=== PATIENT | female | born 1980 | race American Indian/Alaskan Native ===

== ENCOUNTER 2016-12-20 09:55 | Outpatient (CLI) | payer MEDICAID ==
[2016-12-20 10:14] LABS: Hematocrit 40.9 % (30.3-42.9); Hemoglobin 13.4 gm/dl (10.1-14.3); Mean Corpuscular HGB Conc 33 % (30-34); Mean Corpuscular Hemoglobin 29 pg (28-32); Mean Corpuscular Volume 88 fl (79-97); Platelet Count 151 K/mm3 (140-440); Red Blood Count 4.66 M/mm3 (3.65-5.03); Red Cell Distribution Width 15.6 % (13.2-15.2); White Blood Count 5.3 K/mm3 (4.5-11.0)
[2016-12-20 10:34] LABS: Alanine Aminotransferase 12 units/L (7-56); Albumin 4.1 g/dL (3.9-5); Albumin/Globulin Ratio 1.2 %; Alkaline Phosphatase 58 units/L (35-129); Anion Gap 16 mmol/L; BUN/Creatinine Ratio 15.71; Blood Urea Nitrogen 11 mg/dL (7-17); Calcium 8.6 mg/dL (8.4-10.2); Carbon Dioxide 26 mmol/L (22-30); Chloride 105.1 mmol/L (98-107); Glucose 99 mg/dL (65-100); Sodium 143 mmol/L (137-145); Total Protein 7.4 g/dL (6.3-8.2)
[2016-12-20 10:46] LABS: Erythrocyte Sedimentation Rate 11 mm/Hr (0-20)
== END 2016-12-20 09:56 | disposition home or self-care (01) ==
LOC: LAB 09:55
PROVIDERS: ATTEND Specialist
DX: G40.219 Localization-related (focal) (partial) symptomatic epilepsy and epileptic syndromes with complex partial seizures, intractable, without status epilepticus (principal)
CPT/HCPCS: 36415; 80053; 84443; 85027; 85652

== ENCOUNTER 2017-01-24 09:44 | Outpatient (CLI) | payer MEDICAID ==
[2017-01-24 10:11] LABS: Hematocrit 41.6 % (30.3-42.9); Hemoglobin 13.5 gm/dl (10.1-14.3); Mean Corpuscular HGB Conc 33 % (30-34); Mean Corpuscular Hemoglobin 29 pg (28-32); Mean Corpuscular Volume 89 fl (79-97); Platelet Count 132 K/mm3 (140-440); Red Cell Distribution Width 15.1 % (13.2-15.2); White Blood Count 4.5 K/mm3 (4.5-11.0)
[2017-01-24 10:25] LABS: Alanine Aminotransferase 12 units/L (7-56); Albumin 4.2 g/dL (3.9-5); Albumin/Globulin Ratio 1.3 %; Alkaline Phosphatase 55 units/L (35-129); Anion Gap 16 mmol/L; Blood Urea Nitrogen 6 mg/dL (7-17); Carbon Dioxide 26 mmol/L (22-30); Chloride 103.6 mmol/L (98-107); Glucose 88 mg/dL (65-100); Potassium 3.9 mmol/L (3.6-5.0); Sodium 142 mmol/L (137-145); Total Protein 7.4 g/dL (6.3-8.2)
[2017-01-24 11:23] LABS: Calcium 8.9 mg/dL (8.4-10.2)
== END 2017-01-24 09:45 | disposition home or self-care (01) ==
LOC: LAB 09:44
PROVIDERS: ATTEND Specialist
DX: G40.211 Localization-related (focal) (partial) symptomatic epilepsy and epileptic syndromes with complex partial seizures, intractable, with status epilepticus (principal)
CPT/HCPCS: 36415; 80053; 80164; 85027

== ENCOUNTER 2017-10-30 13:26 | Emergency (ER) | payer MEDICAID ==
[2017-10-30 14:33] VITALS: BP 154/90
[2017-10-30] MEDS ORDERED: TORADOL IM ONE (15:48)
--- NOTE | 2017-10-30 17:22 | Emergency Department Report ---
Chief Complaint: Extremity Injury, Lower Stated Complaint: NO MOBILITY ON LEFT SIDE Time Seen by Provider: 10/30/17 15:27 - HPI History of Present Illness: The patient is a 37-year-old female who presents for evaluation of left knee pain. The patient has a history of chronic left knee pain. She reports recurrence of left knee pain yesterday morning, constant since onset, 10/10 in severity, throbbing and stinging in quality, exacerbated with weightbearing or movement of the left leg. She states that her symptoms began after twisting her knee. The patient denies blood trauma to the knee, fever, chills, night sweats , loss of sensation in the leg, leg swelling, bruising, redness. - Exam Vital Signs: Vital Signs 10/30/17 14:28 Temperature 98 F Pulse Rate 87 Respiratory 18 Rate Blood Pressure 154/90 O2 Sat by Pulse 99 Oximetry MSE screening note: Focused history and physical exam performed. Due to findings the following was ordered: ED Disposition for MSE Condition: Stable Referrals: PRIMARY CARE, [Primary Care Provider] - 3-5 Days
--- NOTE | 2017-10-30 18:15 | XRay Report ---
FINAL REPORT PROCEDURE: XR KNEE 2V LT TECHNIQUE: LEFT knee radiographs, AP and lateral views. CPT 94052 HISTORY: Knee pain. COMPARISON: No prior studies are available for comparison. FINDINGS: Fracture (s) and/or Dislocation(s): None . Alignment: Normal . Joint space(s): Mild medial compartment narrowing. Mild tibial eminence spurring. Small joint effusion. Soft tissues: Normal . Bone mineralization: Normal . Foreign bodies: None . IMPRESSION: Mild degenerative changes of the left knee. Small joint effusion. No radiographic evidence of displaced fracture.
== END 2017-10-30 19:35 | disposition left against medical advice (07) ==
LOC: ED 13:26
DX: M25.562 Pain in left knee (principal)
CPT/HCPCS: 73560; 96372; 99283; J1885

== ENCOUNTER 2018-01-08 12:45 | Emergency (ER) | payer MEDICAID ==
[2018-01-08] MEDS ORDERED: KEPPRA 1,000 MG/NS 0.75% 100ML 1,000 MG/100 ML BAG IV ONE (13:52)
[2018-01-08] MEDS ORDERED: ATIVAN IV ONE (14:05)
[2018-01-08] MEDS ORDERED: LaMICtal PO ONE (14:17)
--- NOTE | 2018-01-08 14:30 | Emergency Department Report ---
ED Seizure HPI - General Chief Complaint: Seizure Stated Complaint: SEIZURES Time Seen by Provider: 01/08/18 13:56 Source: patient, EMS Mode of arrival: Stretcher Limitations: No Limitations - History of Present Illness Initial Comments: From chart review, patient started having a generalized tonic-clonic seizure at home. It lasted approximately 10 minutes. EMS arrived and found the patient postictal. No reported wheezes were given. Patient is transferred to the ER for evaluation. Patient does not remember what happened. States that she is on Depakote and Lamictal for her seizures. She misses a couple of doses a week. Her last seizure was a couple months ago. No incontinence or tongue biting. - Related Data Home Medications Medication Instructions Recorded Confirmed Last Taken Ibuprofen [Motrin 800 MG tab] 800 mg PO PRN 10/02/16 10/03/16 Unknown Previous Rx's Medication Instructions Recorded Last Taken Type levETIRAcetam [Keppra TAB] 500 mg PO BID #60 tablet 10/03/16 Unknown Rx Allergies Allergy/AdvReac Type Severity Reaction Status Date / Time Sulfa (Sulfonamide Allergy Rash Verified 07/16/13 03:57 Antibiotics) ED Review of Systems ROS: Stated complaint: SEIZURES Other details as noted in HPI Constitutional: denies: chills, fever Eyes: denies: eye pain, eye discharge, vision change ENT: denies: ear pain, throat pain Respiratory: denies: cough, shortness of breath, wheezing Cardiovascular: denies: chest pain, palpitations Endocrine: no symptoms reported Gastrointestinal: abdominal pain. denies: nausea, diarrhea Genitourinary: denies: urgency, dysuria, discharge Musculoskeletal: denies: back pain, joint swelling, arthralgia Skin: denies: rash, lesions Neurological: denies: headache, weakness, paresthesias Psychiatric: denies: anxiety, depression Hematological/Lymphatic: denies: easy bleeding, easy bruising ED Past Medical Hx - Past Medical History Hx Hypertension: Yes Hx CVA: No Hx Heart Attack/AMI: No Hx Congestive Heart Failure: No Hx Diabetes: No Hx Deep Vein Thrombosis: No Hx Pulmonary Embolism: No Hx GERD: No Hx Liver Disease: No Hx Renal Disease: No Hx Sickle Cell Disease: No Hx Arthritis: No Hx Headaches / Migraines: No Hx Seizures: Yes Hx Kidney Stones: No Hx Psychiatric Treatment: Yes (Anxiety, Bipolar) Hx Asthma: Yes Hx COPD: No Hx Tuberculosis: No Hx Dementia: No Hx HIV: No Additional medical history: "disc problem" lower back, FIBROMYALGIA. bulging disc in c-spine - Surgical History Hx Coronary Stent: No Hx Open Heart Surgery: No Hx Pacemaker: No Hx Internal Defibrillator: No Hx Cholecystectomy: No Hx Appendectomy: No Hx Breast Surgery: No Additional Surgical History: tubal ligation - Social History Smoking Status: Current Every Day Smoker Substance Use Type: None, Marijuana - Medications Home Medications: Home Medications Medication Instructions Recorded Confirmed Last Taken Type Ibuprofen [Motrin 800 MG tab] 800 mg PO PRN 10/02/16 10/03/16 Unknown History levETIRAcetam [Keppra TAB] 500 mg PO BID #60 tablet 10/03/16 Unknown Rx ED Physical Exam - General Limitations: No Limitations General appearance: alert, in no apparent distress - Head Head exam: Present: atraumatic, normocephalic - Eye Eye exam: Present: normal appearance - ENT ENT exam: Present: mucous membranes moist - Neck Neck exam: Present: normal inspection - Respiratory Respiratory exam: Present: normal lung sounds bilaterally. Absent: respiratory distress - Cardiovascular Cardiovascular Exam: Present: regular rate, normal rhythm. Absent: systolic murmur, diastolic murmur, rubs, gallop - GI/Abdominal GI/Abdominal exam: Present: soft, tenderness (RUQ, LUQ), normal bowel sounds - Extremities Exam Extremities exam: Present: normal inspection - Back Exam Back exam: Present: normal inspection - Neurological Exam Neurological exam: Present: alert, oriented X3 - Psychiatric Psychiatric exam: Present: normal affect, normal mood - Skin Skin exam: Present: warm, dry, intact, normal color. Absent: rash ED Course Vital Signs 01/08/18 01/08/18 01/08/18 13:40 14:16 15:35 Temperature 98.4 F Pulse Rate 87 82 Respiratory 18 16 16 Rate Blood Pressure 136/90 Blood Pressure 136/88 [Right] O2 Sat by Pulse 100 100 100 Oximetry ED Medical Decision Making - Lab Data Result diagrams: 01/08/18 14:35 01/08/18 14:35 - EKG Data -: EKG Interpreted by Vt EKG shows normal: sinus rhythm, axis, intervals, QRS complexes, ST-T waves Rate: normal - EKG Data Interpretation: no acute changes - Medical Decision Making 37-year-old female with past medical history of seizures, fibromyalgia, anxiety on Depakote/Chlamydia donut presents to the ER with history of seizure- like activity. Patient was postictal on arrival. She continued to improve. Lab work shows a bicarbonate of 20. Likely this is due to a lactic acidosis from her seizure-like activity. Patient had no deficits on presentation. Do not see indication for head imaging at this time. She was given IV fluids, Ativan, and her home Depakote/Lamictal. Depakote level was 50. EKG unremarkable. I have encouraged the patient to be more compliant with her home medications. She ambulated without any difficulty. Patient cleared for discharge. - Differential Diagnosis meningitis, epilepsy, pseudoseizures, electrolyte abnormalities, sepsis Critical care attestation.: If time is entered above; I have spent that time in minutes in the direct care of this critically ill patient, excluding procedure time. ED Disposition Clinical Impression: Seizure-like activity Disposition: DC-01 TO HOME OR SELFCARE Is pt being admited?: No Does the pt Need Aspirin: No Condition: Stable Instructions: Recurrent Seizures Adult (ED) Additional Instructions: Please follow up with your family doctor and/or neurologist for further management of your seizures. Make sure that you take your home medications every day. Referrals: PRIMARY CARE, [Primary Care Provider] - 3-5 Days
[2018-01-08 15:03] LABS: Hematocrit 44.9 % (30.3-42.9); Hemoglobin 15.3 gm/dl (10.1-14.3); Mean Corpuscular HGB Conc 34 % (30-34); Mean Corpuscular Hemoglobin 30 pg (28-32); Mean Corpuscular Volume 87 fl (79-97); Red Blood Count 5.16 M/mm3 (3.65-5.03); Red Cell Distribution Width 13.9 % (13.2-15.2)
[2018-01-08 15:08] LABS: Platelet Count 124 K/mm3 (140-440)
[2018-01-08 15:18] LABS: BUN/Creatinine Ratio 8; Blood Urea Nitrogen 5 mg/dL (7-17); Hemolysis Index 29
[2018-01-08] MEDS ORDERED: NACL 0.9% 1000 ML 1,000 ML IV ONE (15:31)
[2018-01-08 19:00] VITALS: BP 131/78
== END 2018-01-08 19:00 | disposition home or self-care (01) ==
LOC: ED 12:45
DX: G40.909 Epilepsy, unspecified, not intractable, without status epilepticus (principal); I10 Essential (primary) hypertension; F17.200 Nicotine dependence, unspecified, uncomplicated; F12.10 Cannabis abuse, uncomplicated; Z88.2 Allergy status to sulfonamides
CPT/HCPCS: 36415; 80048; 80164; 82962; 84703; 85027; 93005; 93010; 96361; 96374; 99284; J1953; J2060; J7030

== ENCOUNTER 2018-05-27 10:38 | Emergency (ER) | payer MEDICAID ==
[2018-05-27] MEDS ORDERED: ATIVAN IV ONE (11:04)
[2018-05-27] MEDS ORDERED: KEPPRA 1,000 MG/NS 0.75% 100ML 1,000 MG/100 ML BAG IV ONE (11:05)
--- NOTE | 2018-05-27 11:09 | Emergency Department Report ---
ED Seizure HPI - General Stated Complaint: SEIZURE Time Seen by Provider: 05/27/18 11:01 Source: RN/, EMS - History of Present Illness Initial Comments: Patient presents to the emergency department via EMS for seizure. Per EMS the patient's boyfriend states that the patient has a history of seizures and has not been taking her medications. There is confusion of the patient struck her head on not doing her seizure activity a whole. Patient was post ictal on arrival and had a witnessed tonic-clonic seizure by medical staff in the ED. Patient I will add to history due to a post ictal state MD Complaint: seizure -: Sudden Description of Episode: loss of consciousness, bladder incontinence, post-event confusion Witnessed:: Yes Trauma: No Seizure History: known seizure disorder Place: home Possible Precipitating Event: none Treatments Prior to Arrival: none - Related Data Previous Rx's Medication Instructions Recorded Last Taken Type levETIRAcetam [Keppra TAB] 500 mg PO BID #60 tablet 10/03/16 Unknown Rx levETIRAcetam [Keppra TAB] 500 mg PO BID #60 tablet 05/27/18 Unknown Rx Allergies Allergy/AdvReac Type Severity Reaction Status Date / Time Sulfa (Sulfonamide Allergy Rash Verified 07/16/13 03:57 Antibiotics) ED Review of Systems ROS: Stated complaint: SEIZURE Other details as noted in HPI Comment: Unobtainable due to pts medical conditions ED Past Medical Hx - Past Medical History Hx Hypertension: Yes Hx CVA: No Hx Heart Attack/AMI: No Hx Congestive Heart Failure: No Hx Diabetes: No Hx Deep Vein Thrombosis: No Hx Pulmonary Embolism: No Hx GERD: No Hx Liver Disease: No Hx Renal Disease: No Hx Sickle Cell Disease: No Hx Arthritis: No Hx Headaches / Migraines: No Hx Seizures: Yes Hx Kidney Stones: No Hx Psychiatric Treatment: Yes (Anxiety, Bipolar) Hx Asthma: Yes Hx COPD: No Hx Tuberculosis: No Hx Dementia: No Hx HIV: No Additional medical history: "disc problem" lower back, FIBROMYALGIA. bulging disc in c-spine - Surgical History Hx Coronary Stent: No Hx Open Heart Surgery: No Hx Pacemaker: No Hx Internal Defibrillator: No Hx Cholecystectomy: No Hx Appendectomy: No Hx Breast Surgery: No Additional Surgical History: tubal ligation - Social History Smoking Status: Current Every Day Smoker Substance Use Type: None, Marijuana - Medications Home Medications: Home Medications Medication Instructions Recorded Confirmed Last Taken Type levETIRAcetam [Keppra TAB] 500 mg PO BID #60 tablet 10/03/16 05/27/18 Unknown Rx levETIRAcetam [Keppra TAB] 500 mg PO BID #60 tablet 05/27/18 Unknown Rx ED Physical Exam - Head Head exam: Present: atraumatic, normocephalic - Eye Eye exam: Present: normal appearance, PERRL. Absent: conjunctival injection - ENT ENT exam: Present: normal exam, normal orophraynx, TM's normal bilaterally - Neck Neck exam: Present: other (No obvious gross deformity) - Respiratory Respiratory exam: Present: normal lung sounds bilaterally, respiratory distress. Absent: wheezes, rales, rhonchi - Cardiovascular Cardiovascular Exam: Present: regular rate, normal rhythm - GI/Abdominal GI/Abdominal exam: Present: soft, normal bowel sounds. Absent: distended - Neurological Exam Neurological exam: Present: other (patient is post ictal) - Psychiatric Psychiatric exam: Present: other (not able to assess due to the patient's post ictal state) - Skin Skin exam: Present: warm ED Course Vital Signs 05/27/18 05/27/18 05/27/18 11:03 11:14 13:20 Temperature 98.4 F Pulse Rate 104 H 100 H Respiratory 20 20 20 Rate Blood Pressure 119/77 Blood Pressure 115/71 [Left] O2 Sat by Pulse 94 100 Oximetry ED Medical Decision Making - Radiology Data Referring Physician: SAMANTHA MCGEE Patient Name: GEOFFREY MEJIA Date of : 1980 Sex: Female Report Date: 2018-05-27 Report Status: Finalized [facility] [address] [place] [address] Cat Scan Report Signed Patient: GEOFFREY MEJIA MR#: [id number] : 1980 Acct:[id number] Age/Sex: 37 / F ADM Date: 05/27/18 Loc: ED Attending Dr: Ordering Physician: SAMANTHA MCGEE MD Date of Service: 05/27/18 Procedure(s): CT head/brain wo con Accession Number(s): [id number] cc: SAMANTHA MCGEE MD CT HEAD WITHOUT CONTRAST: HISTORY: Seizure, head injury. TECHNIQUE: Sequential 2.5mm CT images. COMPARISON: 10/03/16. FINDINGS: Cerebral Parenchyma: Within normal limits. Cerebellum: Within normal limits. Brainstem: Within normal limits. Ventricles: Normal. Sella: Normal. Extra-axial spaces: Normal. Basal Cisterns: Normal. Intracranial Hemorrhage: None. Midline Shift: None. Calvarium: Normal. Sinuses: Normal. Mastoid Air Cells: Normal. Visualized Orbits: Normal. IMPRESSION: Cranial CT scan within normal limits. Transcribed By: TTR Dictated By: GRAHAM MACIAS JR, MD Electronically Authenticated By: GRAHAM MACIAS JR, MD Signed Date/Time: 05/27/18 1155 Findings [facility] [address] [place] [address] Cat Scan Report Signed Patient: GEOFFREY MEJIA MR#: [id number] : 1980 Acct:[id number] Age/Sex: 37 / F ADM Date: 05/27/18 Loc: ED Attending Dr: Ordering Physician: SAMANTHA MCGEE MD Date of Service: 05/27/18 Procedure(s): CT cervical spine wo con Accession Number(s): [id number] cc: SAMANTHA MCGEE MD CT SCAN OF THE CERVICAL SPINE: HISTORY: Seizure, head injury. TECHNIQUE: Contiguous 1.25 mm axial images of the cervical spine were obtained. Sagittal and coronal reformatted images. FINDINGS: There is normal alignment of the cervical spine. The body, pedicles and posterior ligaments appear normal. No evidence of fracture or subluxation is seen. The spinal canal appears normal. The prevertebral soft tissues appear normal. There is patchy groundglass infiltration in both lung apices. It is unclear if this represents pulmonary edema or infectious infiltrates. IMPRESSION: Unremarkable CT of the cervical spine. No acute process is noted. Infiltrative changes at both lung apices as described. I favor congestive changes. Transcribed By: TTR Dictated By: GRAHAM MACIAS JR, MD Electronically Authenticated By: GRAHAM MACIAS JR, MD Signed Date/Time: 05/27/18 1156 DD/ 1155 TD/TT: 05/27/18 1156 - Medical Decision Making Patient received IV Keppra and Ativan Physical exam the patient is a massive questions and is no longer postictal but is sleepy due to the medications Critical care attestation.: If time is entered above; I have spent that time in minutes in the direct care of this critically ill patient, excluding procedure time. ED Disposition Clinical Impression: Seizure Disposition: DC-01 TO HOME OR SELFCARE Is pt being admited?: No Does the pt Need Aspirin: No Condition: Stable Instructions: Recurrent Seizures Adult (ED) Additional Instructions: return if worse Prescriptions: levETIRAcetam [Keppra TAB] 500 mg PO BID #60 tablet Referrals: PRIMARY CARE, [Primary Care Provider] - 3-5 Days Time of Disposition: 13:40
--- NOTE | 2018-05-27 11:56 | Cat Scan Report ---
CT HEAD WITHOUT CONTRAST: HISTORY: Seizure, head injury. TECHNIQUE: Sequential 2.5mm CT images. COMPARISON: 10/03/16. FINDINGS: Cerebral Parenchyma: Within normal limits. Cerebellum: Within normal limits. Brainstem: Within normal limits. Ventricles: Normal. Sella: Normal. Extra-axial spaces: Normal. Basal Cisterns: Normal. Intracranial Hemorrhage: None. Midline Shift: None. Calvarium: Normal. Sinuses: Normal. Mastoid Air Cells: Normal. Visualized Orbits: Normal. IMPRESSION: Cranial CT scan within normal limits.
--- NOTE | 2018-05-27 11:58 | Cat Scan Report ---
CT SCAN OF THE CERVICAL SPINE: HISTORY: Seizure, head injury. TECHNIQUE: Contiguous 1.25 mm axial images of the cervical spine were obtained. Sagittal and coronal reformatted images. FINDINGS: There is normal alignment of the cervical spine. The body, pedicles and posterior ligaments appear normal. No evidence of fracture or subluxation is seen. The spinal canal appears normal. The prevertebral soft tissues appear normal. There is patchy groundglass infiltration in both lung apices. It is unclear if this represents pulmonary edema or infectious infiltrates. IMPRESSION: Unremarkable CT of the cervical spine. No acute process is noted. Infiltrative changes at both lung apices as described. I favor congestive changes.
[2018-05-27 13:21] VITALS: BP 115/71
[2018-05-27] MEDS ORDERED: TYLENOL PO ONE (14:14)
== END 2018-05-27 14:54 | disposition home or self-care (01) ==
LOC: ED 10:38
DX: G40.909 Epilepsy, unspecified, not intractable, without status epilepticus (principal); I10 Essential (primary) hypertension; J45.909 Unspecified asthma, uncomplicated; F17.200 Nicotine dependence, unspecified, uncomplicated; F12.90 Cannabis use, unspecified, uncomplicated; Z98.51 Tubal ligation status; Z88.2 Allergy status to sulfonamides
CPT/HCPCS: 70450; 72125; 96365; 96375; 99284; J1953; J2060

== ENCOUNTER 2020-07-06 07:15 | Emergency (ER) | payer MEDICAID ==
[2020-07-06 08:30] LABS: Basophils % (Auto) 0.4 % (0.0-1.8); Eosinophils % (Auto) 0.1 % (0.0-4.3); Hemoglobin 14.6 gm/dl (10.1-14.3); Lymphocytes # (Auto) 0.9 K/mm3 (1.2-5.4); Lymphocytes % (Auto) 13.1 % (13.4-35.0); Mean Corpuscular HGB Conc 35 % (30-34); Mean Corpuscular Volume 88 fl (79-97); Monocytes # (Auto) 0.4 K/mm3 (0.0-0.8); Red Blood Count 4.76 M/mm3 (3.65-5.03); Red Cell Distribution Width 14.6 % (13.2-15.2)
[2020-07-06] MEDS ORDERED: SODIUM CHLORIDE 0.9% 1000 ML 1,000 ML ONE (08:42)
[2020-07-06] MEDS ORDERED: ONDANSETRON 4 MG/2 ML INJ ONE (08:42)
[2020-07-06 08:46] LABS: Platelet Count 156 K/mm3 (140-440)
[2020-07-06 08:52] LABS: Alanine Aminotransferase 22 units/L (7-56); Albumin 4.1 g/dL (3.9-5); Blood Urea Nitrogen 6 mg/dL (7-17); Calcium 8.9 mg/dL (8.4-10.2); Hemolysis Index 34
[2020-07-06 08:59] LABS: BUN/Creatinine Ratio 9
[2020-07-06] MEDS ORDERED: levETIRAcetam 1000 MG/NS 0.75% 1,000 MG/100 ML BAG IV ONE (11:10)
[2020-07-06] MEDS ORDERED: ALUM-MAG HYDROXIDE-SIMETHICONE 200-200-20MG/5ML ORAL LIQD 30 ML PO ONE (11:10)
[2020-07-06] MEDS ORDERED: LIDOCAINE VISCOUS 2% 15 ML ORAL LIQD PO ONE (11:10)
[2020-07-06] MEDS ORDERED: OXcarbazepine 150 MG TAB PO ONE (11:10)
[2020-07-06] MEDS ORDERED: MORPHINE 2 MG/1 ML INJ IV ONE (11:11)
--- NOTE | 2020-07-06 11:15 | Emergency Department Report ---
HPI - General Chief Complaint: Seizure Time Seen by Provider: 07/06/20 11:02 - HPI HPI: This is a 39-year-old -[place] female who presents to the emergency department via EMS from home with a complaint of abdominal pain and a seizure this morning. The patient says that she had a seizure in her sleep. I spoke with her significant other on the phone who says that she had a seizure at around 3:30 AM, and another around 4 AM, that each lasted about 1 minute in length. She last had a seizure about 6 months ago. She has a history of epilepsy and is on Keppra 750 mg twice daily and oxcarbazepine 300 mg twice daily. The patient says that she does take the medication, but not necessarily as prescribed. The patient has some generalized abdominal pain that she says is 8 out of 10 in intensity. She says that she has a history of previous "stomach ulcer" and both the patient and her significant other say that her seizure activity occurs after the patient started having severe abdominal pains, which she did this morning. She did have an episode of nausea with vomiting earlier. Patient also complains of a generalized headache since the seizure. She denies any vision change, slurred speech, numbness or paresthesias, or any other neuro logical deficits. She did not receive anything for symptoms prior to presentation. Patient also has a past medical history of asthma, hypertension, anxiety, bipolar disorder, fibromyalgia, and some chronic back pains. Her primary care physician is a Dr. Fabby Rudolph. Her neurologist is a Dr. Cary at [place]. ED Past Medical Hx - Past Medical History Previous Medical History?: Yes Hx Hypertension: Yes Hx CVA: No Hx Heart Attack/AMI: No Hx Congestive Heart Failure: No Hx Diabetes: No Hx Deep Vein Thrombosis: No Hx Pulmonary Embolism: No Hx GERD: No Hx Liver Disease: No Hx Renal Disease: No Hx Sickle Cell Disease: No Hx Arthritis: No Hx Headaches / Migraines: No Hx Seizures: Yes Hx Kidney Stones: No Hx Psychiatric Treatment: Yes (Anxiety, Bipolar) Hx Asthma: Yes Hx COPD: No Hx Tuberculosis: No Hx Dementia: No Hx HIV: No Additional medical history: "disc problem" lower back, FIBROMYALGIA. bulging disc in c-spine - Surgical History Past Surgical History?: Yes Hx Coronary Stent: No Hx Open Heart Surgery: No Hx Pacemaker: No Hx Internal Defibrillator: No Hx Cholecystectomy: No Hx Appendectomy: No Hx Breast Surgery: No Additional Surgical History: tubal ligation - Social History Smoking Status: Never Smoker Substance Use Type: None - Medications Home Medications: Home Medications Medication Instructions Recorded Confirmed Last Taken Type levETIRAcetam [Keppra TAB] 500 mg PO BID #60 tablet 10/03/16 05/27/18 Unknown Rx levETIRAcetam [Keppra TAB] 500 mg PO BID #60 tablet 05/27/18 Unknown Rx predniSONE [Deltasone] 20 mg PO DAILY #5 tablet 02/18/20 Unknown Rx ED Review of Systems ROS: Stated complaint: SEIZURE/ABD PAINS Other details as noted in HPI Comment: All other systems reviewed and negative Constitutional: denies: chills, fever Eyes: denies: eye pain, vision change ENT: denies: ear pain, throat pain Respiratory: denies: cough, shortness of breath Cardiovascular: denies: chest pain, palpitations Gastrointestinal: abdominal pain, vomiting Genitourinary: denies: dysuria, discharge Musculoskeletal: denies: joint swelling, arthralgia Skin: denies: rash, lesions Neurological: headache. denies: weakness Physical Exam - Physical Exam Vital Signs: Vital Signs 07/06/20 07:53 Temperature 98.5 F Pulse Rate 96 H Respiratory 20 Rate Blood Pressure 142/93 [Right] O2 Sat by Pulse 100 Oximetry Physical Exam: GENERAL: The patient is well-developed well-nourished. HENT: Normocephalic. Atraumatic. Patient has moist mucous membranes. EYES: Extraocular motions are intact. NECK: Supple. Trachea is midline. CHEST/LUNGS: Clear to auscultation. There is no respiratory distress noted. HEART/CARDIOVASCULAR: Regular. There is no tachycardia. There is no murmur. ABDOMEN: Abdomen is soft. Mild generalized abdominal tenderness to palpation. No guarding. Patient has normal bowel sounds. There is no abdominal distention. SKIN: Skin is warm and dry. NEURO: The patient is awake, alert, and oriented. The patient is cooperative. The patient has no focal neurologic deficits. Normal speech. Cranial nerves II through XII grossly intact. MUSCULOSKELETAL: There is no tenderness or deformity. There is no limitation range of motion. ED Course Vital Signs 07/06/20 07:53 Temperature 98.5 F Pulse Rate 96 H Respiratory 20 Rate Blood Pressure 142/93 [Right] O2 Sat by Pulse 100 Oximetry ED Medical Decision Making - Lab Data Result diagrams: 07/06/20 08:00 07/06/20 08:00 - Radiology Data Radiology results: report reviewed, image reviewed interpreted by me: Abdominal x-ray shows nonspecific nonobstructive bowel gas CT HEAD WITHOUT CONTRAST INDICATION / CLINICAL INFORMATION: headache, seizures. TECHNIQUE: Axial imaging performed from the skull apex through the skull base without the use of contrast. Sagittal and coronal reformatted images. All CT scans at this location are [facility] dose reduction for FELICE by means of automated exposure control. COMPARISON: 05/27/2018 FINDINGS: CEREBRAL PARENCHYMA: No significant abnormality. No acute territorial infarct. HEMORRHAGE: None. EXTRA-AXIAL SPACES: Normal in size and morphology for the patient's age. VENTRICULAR SYSTEM: Normal in size and morphology for the patient's age. MIDLINE SHIFT OR HERNIATION: None. CEREBELLUM / BRAINSTEM: No significant abnormality. CALVARIUM: No significant abnormality. ORBITS: Normal as visualized. PARANASAL SINUSES / MASTOID AIR CELLS: Normal as visualized. SOFT TISSUES of HEAD: No significant abnormality. ADDITIONAL FINDINGS: None. IMPRESSION: No acute intracranial abnormality. - Medical Decision Making This patient presents after she had 2 witnessed seizures early this morning. Since being in the emergency department the patient has been awake, alert, oriented, AAO x3. She does not have any focal, motor or sensory deficits and her cranial nerves are intact. CT scan of the head without contrast does not show any bleed, shift, mass, ischemia, hydrocephalus, or any other acute process. Patient admits that she has not been compliant completely with her oxcarbazepine and Keppra. She was given a loading dose of Keppra and another dose of her oxcarbazepine. Patient has been to the emergency department for greater than 6 hours and there has been no return of any seizure-like activity. Patient also complains of some abdominal pain that appears to be acute on chroni c. Abdominal x-ray shows nonspecific nonobstructive bowel gas. The abdomen has some mild tenderness to palpation but otherwise it is nondistended, soft, and nontoxic in appearance. Patient had complained of seeing some blood in her urine. Urinalysis did not show any signs of urinary tract infection or any significant hematuria. However, I explained that she should follow-up with urology and she was given a referral for Dr. Resendez. Vital signs have been reassuring throughout her ED course. Patient says that she has good outpatient follow-up with both primary care and neurology. She has been instructed to return to the closest emergency department with any further seizure-like activity, worsening of her symptoms, or with any acute distress. Critical Care Time: No Critical care attestation.: If time is entered above; I have spent that time in minutes in the direct care of this critically ill patient, excluding procedure time. ED Disposition Clinical Impression: Seizure Abdominal pain Qualifiers: Abdominal location: generalized Qualified Code(s): R10.84 - Generalized abdominal pain Headache Qualifiers: Headache type: unspecified Headache chronicity pattern: unspecified pattern Intractability: not intractable Qualified Code(s): R51.9 - Headache, unspecified Disposition: TO HOME OR SELFCARE Is pt being admited?: No Condition: Stable Instructions: Abdominal Pain, Adult, Epilepsy, Seizure, Adult, Hematuria, Adult Additional Instructions: Please follow-up with your primary care physician and neurologist in the next few days. While the urinalysis today did not show any signs of infection or any blood in the urine, based on your complaint of seeing blood in the urine I have given you a referral for a local urologist, Dr. Resendez. Take all of your medications, including your seizure medications, as prescribed. Please avoid any alcohol or illicit drugs, or excessive caffeine, energy drinks, as this can lower your seizure threshold. Return to the emergency department with any worsening of your symptoms, new or concerning symptoms not addressed during this current emergency department visit, or with any acute distress. Referrals: Neurologist, Your [Other] - 2-3 Days NAVA RESENDEZ MD [Staff Physician] - 2-3 Days PRIMARY CARE, [Primary Care Provider] - 2-3 Days Time of Disposition: 14:01
[2020-07-06] MEDS ORDERED: SODIUM CHLORIDE 0.9% 1000 ML 1,000 ML IV ONE (11:24)
[2020-07-06] MEDS ORDERED: ONDANSETRON 4 MG/2 ML INJ IV ONE (11:24)
--- NOTE | 2020-07-06 12:40 | XRay Report ---
ABDOMEN 2 VIEW(S) INDICATION / CLINICAL INFORMATION: Abd pain. COMPARISON: None available. FINDINGS: TUBES / LINES: None. BOWEL GAS PATTERN/EXTRALUMINAL GAS: No significant abnormality. No pneumatosis or secondary signs of free air. ADDITIONAL FINDINGS: No significant additional findings. IMPRESSION: 1. No acute abnormality. Signer Name: Amrit Zaldivar MD Signed: 07/06/2020 12:35 PM Workstation Name: [id number]
[2020-07-06 13:29] LABS: Bilirubin,Urine NEG (Negative); Blood,Urine LG (Negative); Color,Urine Yellow (Yellow); Mucus,Urine 1+ /HPF; Protein,Urine <15 mg/dL mg/dL (Negative); Urobilinogen,Urine < 2.0 mg/dL (<2.0)
--- NOTE | 2020-07-06 13:49 | Cat Scan Report ---
CT HEAD WITHOUT CONTRAST INDICATION / CLINICAL INFORMATION: headache, seizures. TECHNIQUE: Axial imaging performed from the skull apex through the skull base without the use of cont rast. Sagittal and coronal reformatted images. All CT scans at this location are performed using CT dose reduction for ALARA by means of automated exposure control. COMPARISON: 05/27/2018 FINDINGS: CEREBRAL PARENCHYMA: No significant abnormality. No acute territorial infarct. HEMORRHAGE: None. EXTRA-AXIAL SPACES: Normal in size and morphology for the patient's age. VENTRICULAR SYSTEM: Normal in size and morphology for the patient's age. MIDLINE SHIFT OR HERNIATION: None. CEREBELLUM / BRAINSTEM: No significant abnormality. CALVARIUM: No significant abnormality. ORBITS: Normal as visualized. PARANASAL SINUSES / MASTOID AIR CELLS: Normal as visualized. SOFT TISSUES of HEAD: No significant abnormality. ADDITIONAL FINDINGS: None. IMPRESSION: No acute intracranial abnormality. Signer Name: Hakeem Arrieta Jr, MD Signed: 07/06/2020 1:44 PM Workstation Name: [id number]
[2020-07-06 14:52] VITALS: BP 130/87
== END 2020-07-06 14:52 | disposition home or self-care (01) ==
LOC: ED 07:15
DX: R10.9 Unspecified abdominal pain (principal); G40.909 Epilepsy, unspecified, not intractable, without status epilepticus; R51.9 Headache, unspecified; I10 Essential (primary) hypertension; F41.9 Anxiety disorder, unspecified; F31.9 Bipolar disorder, unspecified; Z98.51 Tubal ligation status; Z79.899 Other long term (current) drug therapy
CPT/HCPCS: 36415; 70450; 74019; 80053; 81001; 84703; 85025; 96365; 96366; 96375; 99285; J1953; J2270; J2405; J7030

== ENCOUNTER 2022-04-26 19:12 | Emergency (ER) | payer MEDICAID | END 2022-04-27 19:00 | disposition left against medical advice (07) | LOC: ED 19:12 | DX: I10 Essential (primary) hypertension (principal); Z53.21 Procedure and treatment not carried out due to patient leaving prior to being seen by health care provider ==

== ENCOUNTER 2022-05-04 13:19 | Emergency (ER) | payer MEDICAID ==
[2022-05-04] MEDS ORDERED: LORazepam 2 MG/ML VIAL ONE (14:25)
[2022-05-04] MEDS ORDERED: levETIRAcetam 1000 MG/NS 0.75% 1,000 MG/100 ML BAG IV ONE (14:27)
[2022-05-04] MEDS ORDERED: ONDANSETRON 4 MG/2 ML INJ IV ONE (14:28)
[2022-05-04] MEDS ORDERED: SODIUM CHLORIDE 0.9% 1000 ML 1,000 ML IV ONE (14:28)
[2022-05-04] MEDS ORDERED: LORazepam 2 MG/ML VIAL IM ONE (14:28)
--- NOTE | 2022-05-04 14:33 | Emergency Department Report ---
<DEAN RODAS - Last Filed: 05/04/22 15:29> ED Seizure HPI - General Stated Complaint: SEIZURE/HEADACHE Time Seen by Provider: 05/04/22 14:23 - History of Present Illness Initial Comments: 41 yo F with h/o HTn, anxiety and bipolar with seizure who came in with seizure episode that occurred this afternoon. She reports nausea and non bloody emesis as well. No fever or chills reported. Pt denies falling or hitting head on the floor. According to patient's daughter in the exam room her other sister held her from falling to the ground. Pt denies any other modifying or associated factors. MD Complaint: seizure - Related Data Previous Rx's Medication Instructions Recorded Last Taken Type levETIRAcetam [Keppra TAB] 500 mg PO BID #60 tablet 10/03/16 Unknown Rx levETIRAcetam [Keppra TAB] 500 mg PO BID #60 tablet 05/27/18 Unknown Rx predniSONE [Deltasone] 20 mg PO DAILY #5 tablet 02/18/20 Unknown Rx levETIRAcetam [Keppra TAB] 1,000 mg PO BID 15 Days #30 tab 05/04/22 Unknown Rx Allergies Allergy/AdvReac Type Severity Reaction Status Date / Time Sulfa (Sulfonamide Allergy Rash Verified 05/04/22 14:35 Antibiotics) ED Review of Systems Comment: All other systems reviewed and negative Gastrointestinal: nausea, vomiting Neurological: other (seizure ) ED Past Medical Hx - Past Medical History Hx Hypertension: Yes Hx CVA: No Hx Heart Attack/AMI: No Hx Congestive Heart Failure: No Hx Diabetes: No Hx Deep Vein Thrombosis: No Hx Pulmonary Embolism: No Hx GERD: No Hx Liver Disease: No Hx Renal Disease: No Hx Sickle Cell Disease: No Hx Arthritis: No Hx Headaches / Migraines: No Hx Seizures: Yes Hx Kidney Stones: No Hx Psychiatric Treatment: Yes (Anxiety, Bipolar) Hx Asthma: Yes Hx COPD: No Hx Tuberculosis: No Hx Dementia: No Hx HIV: No Additional medical history: "disc problem" lower back, FIBROMYALGIA. bulging disc in c-spine - Surgical History Hx Coronary Stent: No Hx Open Heart Surgery: No Hx Pacemaker: No Hx Internal Defibrillator: No Hx Cholecystectomy: No Hx Appendectomy: No Hx Breast Surgery: No Additional Surgical History: tubal ligation - Social History Smoking Status: Never Smoker Substance Use Type: None - Medications Home Medications: Home Medications Medication Instructions Recorded Confirmed Last Taken Type levETIRAcetam [Keppra TAB] 500 mg PO BID #60 tablet 10/03/16 05/27/18 Unknown Rx levETIRAcetam [Keppra TAB] 500 mg PO BID #60 tablet 05/27/18 Unknown Rx predniSONE [Deltasone] 20 mg PO DAILY #5 tablet 02/18/20 Unknown Rx levETIRAcetam [Keppra TAB] 1,000 mg PO BID 15 Days #30 tab 05/04/22 Unknown Rx ED Physical Exam - General Limitations: No Limitations General appearance: alert, postictal - Head Head exam: Present: atraumatic, normal inspection - Eye Eye exam: Present: normal appearance Pupils: Present: normal accommodation - ENT ENT exam: Present: normal exam, normal orophraynx, mucous membranes dry - Neck Neck exam: Present: normal inspection. Absent: tenderness - Respiratory Respiratory exam: Present: normal lung sounds bilaterally. Absent: respiratory distress, accessory muscle use - Cardiovascular Cardiovascular Exam: Present: regular rate, normal rhythm, normal heart sounds - GI/Abdominal GI/Abdominal exam: Present: soft, normal bowel sounds. Absent: distended, tenderness - Extremities Exam Extremities exam: Present: normal inspection, normal capillary refill. Absent: tenderness, pedal edema - Back Exam Back exam: Absent: tenderness - Neurological Exam Neurological exam: Present: alert, oriented X3 - Psychiatric Psychiatric exam: Present: normal affect, normal mood - Skin Skin exam: Present: warm, normal color ED Course - Reevaluation(s) Reevaluation #1: 05/04/22 15:[address] Morejon while waiting for labs and patient response to treatment ED Medical Decision Making - Lab Data Result diagrams: 05/04/22 14:38 - Medical Decision Making Here with possible seizure currently postictal -- considering her history of seizure -- but considering this patients age other differential such as stroke which is unlikely, myocardial infarction, hepatic encephalopathy, systemic infection with sepsis cannot be ruled out. In order to rule out those above we will go ahead and order CBC, CMP, urinalysis, for any infectious process or electrolyte abnormality and thyroid panel for any hypo or hyper thyroidism. In the meantime we will go ahead and give immediate Ativan 2 mg IV x1 and Keppra 1 g IV piggyback x1. Will continue to monitor ED Disposition Clinical Impression: Seizure, Medication refill Disposition: 01 HOME / SELF CARE / HOMELESS Does the pt Need Aspirin: No Condition: Stable Instructions: Seizure, Adult, [id number] Additional Instructions: PLEASE FILL THE KEPPRA PRESCRIPTION AND START TAKING IT. MAKE A FOLLOW UP APPOINTMENT WITH YOUR NEUROLOGIST TO BE SEEN WITHIN 3 DAYS. Prescriptions: levETIRAcetam [Keppra TAB] 1,000 mg PO BID 15 Days #30 tab <YUE MOREJON - Last Filed: 05/04/22 19:13> ED Review of Systems ROS: Stated complaint: SEIZURE/HEADACHE Other details as noted in HPI ED Course Vital Signs 05/04/22 05/04/22 05/04/22 14:27 15:28 17:20 Temperature 98.5 F Pulse Rate 102 H 97 H 74 Respiratory 18 18 18 Rate Blood Pressure 159/112 146/97 135/69 [Left] O2 Sat by Pulse 99 99 99 Oximetry - Reevaluation(s) Reevaluation #1: 05/04/22 19:12 I HAVE SEEN THE PATIENT MYSELF. PER PATIENT, SHE TAKES KEPPRA 1000MG EVERY 12 HOURS AND SHE RAN OUT OF HER MEDICATION YESTERDAY. PATIENT DENIES ANY OTHER SYMPTOMS. AOX4 GCS15. INFORMED TO FILL OUT KEPPRA AND FOLLOW UP WITH NEUROLOGIST WITHIN 3 DAYS. ED Medical Decision Making - Lab Data Result diagrams: 05/04/22 14:38 05/04/22 14:38 Critical care attestation.: If time is entered above; I have spent that time in minutes in the direct care of this critically ill patient, excluding procedure time. ED Disposition Is pt being admited?: No Time of Disposition: 19:12
[2022-05-04 14:55] LABS: Basophils % (Auto) 0.7 % (0.0-1.8); Eosinophils % (Auto) 0.1 % (0.0-4.3); Hematocrit 44.4 % (30.3-42.9); Hemoglobin 14.3 gm/dl (10.1-14.3); Lymphocytes # (Auto) 1.1 K/mm3 (1.2-5.4); Lymphocytes % (Auto) 22.3 % (13.4-35.0); Mean Corpuscular HGB Conc 32 % (30-34); Mean Corpuscular Volume 89 fl (79-97); Monocytes # (Auto) 0.4 K/mm3 (0.0-0.8); Monocytes % (Auto) 7.9 % (0.0-7.3); Platelet Count 151 K/mm3 (140-440); Red Cell Distribution Width 14.8 % (13.2-15.2)
[2022-05-04 15:28] LABS: Free T4 (Free Thyroxine) 0.85 ng/dL (0.76-1.46)
[2022-05-04 16:05] LABS: Alanine Aminotransferase 29 units/L (7-56); Albumin 4.6 g/dL (3.9-5); Blood Urea Nitrogen 6 mg/dL (7-17); Calcium 9.4 mg/dL (8.4-10.2); Hemolysis Index 16
[2022-05-04 16:11] LABS: BUN/Creatinine Ratio 10
--- NOTE | 2022-05-04 17:09 | Cat Scan Report ---
CT BRAIN: 05/04/2022 INDICATION / CLINICAL INFORMATION: SEZIURE. COMPARISON: 07/06/2020 FINDINGS: BRAIN/INTRACRANIAL STRUCTURES: Unenhanced CT images of the brain were obtained and compared to the pr ior exam from 07/06/2020 ]\. There is no evidence of acute abnormality. Ventricles and sulci are normal in size and shape. There is no evidence of acute ischemic injury, hemorrhage, or mass. There are no abnormal extra-axial fluid collections. EXTRACRANIAL STRUCTURES: Unremarkable. IMPRESSION: Negative unenhanced CT of the brain. All CT scans at this location are performed using dose reduction to ALARA by means of automated expos ure control. Signer Name: Paul Otto MD Signed: 05/04/2022 5:05 PM Workstation Name: [id number]
[2022-05-04 17:20] VITALS: BP 135/69
[2022-05-04] MEDS ORDERED: ACETAMINOPHEN 325 MG TAB PO ONE (17:48)
[2022-05-04 17:59] LABS: Mucus,Urine FEW /HPF; WBC,Urine < 1.0 /HPF (0.0-6.0)
[2022-05-04 18:00] LABS: Color,Urine Straw (Yellow); HCG Qualitative,Urine Negative (Negative)
[2022-05-04 18:08] LABS: Amphetamine Screen,Urine Negative; Benzodiazepines Screen,Urine Negative; Cocaine Screen,Urine Negative; Methadone Screen,Urine Negative; Opiate Screen,Urine Negative
[2022-05-04 18:50] LABS: Cannabinoid Screen,Urine Positive
== END 2022-05-04 19:40 | disposition home or self-care (01) ==
LOC: ED 13:19
DX: R56.9 Unspecified convulsions (principal); Z76.0 Encounter for issue of repeat prescription; I10 Essential (primary) hypertension; F41.9 Anxiety disorder, unspecified; J45.909 Unspecified asthma, uncomplicated; Z88.1 Allergy status to other antibiotic agents; Z79.899 Other long term (current) drug therapy
CPT/HCPCS: 36415; 70450; 80053; 80177; 80307; 81001; 81025; 83690; 84439; 84443; 85025; 96372; 96374; 96375; 99284; J1953; J2060; J2405; J7030